=== PATIENT | female | born 1990 | race Caucasian/White ===

== ENCOUNTER 2019-09-22 16:37 | Emergency (ER) | payer BC, SELFPAY ==
[2019-09-22 16:38] VITALS: BP 122/85; PULSE 102; RESP 18; TEMP 37; O2SAT 97; BMI 26.6
--- NOTE | 2019-09-22 16:54 | HMH.EDUTC ---
[facility] [place] Disposition Clinical Impression: Viral syndrome Disposition: Home, Self-Care Condition on Discharge: Good Instructions: DI for Viral Syndrome Additional Instructions: Drink plenty of fluids. Take tylenol pain or fever. If you're not getting better in a day or so, or if you get worse, please return for testing for COVID-19. Your symptoms do not sound exactly like COVID, but the symptoms can be varied with COVID. To be safe, you should self-quarantine. Follow up with your regular doctor. GO TO THE ER FOR ANY WORSENING SYMPTOMS Referrals: Provider,Referral, MD [Primary Care Provider] - Forms: Work/School Release Time of Disposition: 17:20 Medical Decision Making - Medical Records Medical records reviewed: No: I reviewed the patient's medical records. - Reza Inquiry Pt receiving controlled substance: No Vital Signs: 09/22/19 16:38 09/22/19 17:27 Temperature 98.6 F 98.6 F Temperature Source Oral Oral Pulse Rate 102 H Pulse Rate [Radial] 102 H Respiratory Rate 18 18 Blood Pressure 122/85 Blood Pressure [Right Arm] 122/85 Blood Pressure Mean [Right Arm] 97 Blood Pressure Source Automatic Cuff Blood Pressure Source [Right Arm] Automatic Cuff Blood Pressure Position Sitting Blood Pressure Position [Right Arm] Sitting 02 Sat by Pulse Oximetry 97 Oxygen Delivery Method Room Air Room Air - Lab Data Lab results reviewed: Yes: I reviewed the patient's lab results. Lab Results 09/22/19 16:59: Influenza Type A Ag Negative, Influenza Type B Ag Negative 09/22/19 16:59: Strep Scn Rapid Clinic Negative Orders (Tests/Meds): ED MEDICATIONS Discontinued Medications Generic Name Dose Route Start Last Admin Trade Name Freq PRN Reason Stop Dose Admin Acetaminophen 1,000 mg 09/22/19 17:14 Tylenol 500mg Tablet PO 09/22/19 17:15 ONCE ONE Acetaminophen 650 mg 09/22/19 17:20 09/22/19 17:21 Acetaminophen 325mg Tab PO 09/22/19 17:21 650 mg ONCE ONE Administration ORDERS Category Date Time Status Strep Screen Confirmation Stat Micro 09/22/19 16:59 Received Medical Decision Narrative: She refuses to be checked for COVID-19 at this time. She is concerned about having the nasal swab performed. She is agreeable to self quarantining and returning if she gets worse. [facility] HPI - General Stated complaint: body aches, weakness Time Seen by Provider: 09/22/19 16:55 - History of Present Illness Provider Complaint: She reports that for the past 1 to 2 days she has felt achy kind of all over and felt like she was running a temperature. Her throat is also mildly sore, but she has frequent mild sore throats that generally don't mean she is sick. She denies any cough, chest congestion or sinus congestion. She denies any known exposure to COVID-19. At this time, she does not want to be tested for COVID. She states that she will return for testing if she is not better in a day or so. - Related Data Home Medications Medication Instructions Recorded Confirmed Buspirone HCl [Buspar 5mg tablet] 5 mg PO TID 08/30/17 03/03/18 buPROPion HCL [Wellbutrin Sr] 100 mg PO DAILY 08/30/17 03/03/18 Previous Rx's Medication Instructions Recorded Phenazopyridine HCl [Pyridium 200 pow PO TID #6 tab 07/06/18 200mg Tablet] Allergies Allergy/AdvReac Type Severity Reaction Status Date / Time codeine [CODEINE] Allergy Unknown NAUSEA, Verified 07/06/18 03:01 DI[facility] History - Hepatitis A Screen Attestation statement:: This patient has been screened for Hepatitis A risk factors. I have reviewed the patient's past medical history: Yes Medical History: Denies:: Diabetes Mellitus Type 1, Diabetes Mellitus Type 2, MRSA Laterality Cases: Bilateral: Tonsillectomy - Social History Smoking Status: Current every day smoker Tobacco Type: cigarettes # Packs/Day (cigarettes): 1 Alcohol Intake: never Substance Use Type: marijuana Occupa
[2019-09-22 17:27] VITALS: BP 122/85; PULSE 102; RESP 18; TEMP 37; O2SAT 97
[2019-09-22 18:07] LABS: UTC Strep Screen (Rapid) Negative (Negative)
[2019-09-22 18:08] LABS: UTC Influenza A Antigen Negative (Negative); UTC Influenza B Antigen Negative (Negative)
== END 2019-09-22 17:28 | disposition home or self-care (01) ==
PROVIDERS: Emergency Provider Nurse Practitioner Family
DX: B34.9 Viral infection, unspecified (principal); F17.210 Nicotine dependence, cigarettes, uncomplicated; Z90.09 Acquired absence of other part of head and neck
CPT/HCPCS: 87804; 87880; 99201; 99202